=== PATIENT | male | born 1945 | race Caucasian/White ===

== ENCOUNTER 2017-12-14 17:13 | Emergency (ER) | payer OTHER ==
[2017-12-14] MEDS: KETOROLAC 15 MG INJ IM (18:20)
== END 2017-12-14 19:39 | disposition home or self-care (01) ==
LOC: FTE 17:13
DX: S13.9XXA Sprain of joints and ligaments of unspecified parts of neck, initial encounter (principal); E11.9 Type 2 diabetes mellitus without complications; X58.XXXA Exposure to other specified factors, initial encounter; Y92.89 Other specified places as the place of occurrence of the external cause
CPT/HCPCS: 72040; 96372; 99284-25